=== PATIENT | female | born 1980 | race Two or more races ===

== ENCOUNTER 2020-06-20 17:49 | Emergency (ER) | payer OTHER ==
[~2020-06-20] VITALS: Ht 170.2 cm; Wt 89.4 kg
[~2020-06-20 17:49] MED LIST: DOLOGESIC CAPSU1 CAP PO; LISINOPRIL10 MG
== END 2020-06-20 22:33 | disposition home or self-care (01) ==
LOC: ER 17:49
DX: M54.16 Radiculopathy, lumbar region (principal); N39.0 Urinary tract infection, site not specified

== ENCOUNTER 2022-03-24 09:33 | Emergency (ER) | payer OTHER ==
[~2022-03-24] VITALS: Ht 170.2 cm; Wt 99.8 kg
[2022-03-24] MEDS ORDERED: PROTONIX40 M1 PO (09:52)
[2022-03-24] MEDS ORDERED: MULTI VITAMIN1 EACH PO (09:52)
== END 2022-03-24 13:10 | disposition home or self-care (01) ==
LOC: ER 09:33
DX: S09.90XA Unspecified injury of head, initial encounter (principal); X58.XXXA Exposure to other specified factors, initial encounter; Y93.9 Activity, unspecified; Y92.9 Unspecified place or not applicable; Y99.9 Unspecified external cause status; R51.9 Headache, unspecified

== ENCOUNTER 2025-03-27 07:09 | Outpatient (CLI) | payer OTHER ==
[~2025-03-27 07:09] MED LIST changes: +MULTI VITAMIN1 EACH PO; +PROTONIX40 M1 PO
== END 2025-03-27 07:11 | disposition home or self-care (01) ==
LOC: PRENATAL 07:09
PROVIDERS: ATTEND Obstetrics & Gynecology Maternal & Fetal Medicine
DX: O44.02 Complete placenta previa NOS or without hemorrhage, second trimester (principal); Z14.8 Genetic carrier of other disease; O09.522 Supervision of elderly multigravida, second trimester; O34.219 Maternal care for unspecified type scar from previous cesarean delivery; O99.212 Obesity complicating pregnancy, second trimester; Z3A.24 24 weeks gestation of pregnancy

== ENCOUNTER 2025-04-23 10:31 | Outpatient (CLI) | payer OTHER ==
[~2025-04-23 10:31] MED LIST changes: +HUMULIN N100 UNIT/2 SUBCUTANEO; +INSULIN SYRING1 EA29 SUBCUTANEO; +NIFEDIPINE ER30 M1 PO
== END 2025-04-23 10:33 | disposition home or self-care (01) ==
LOC: PRENATAL 10:31
PROVIDERS: ATTEND Obstetrics & Gynecology Maternal & Fetal Medicine
DX: O26.842 Uterine size-date discrepancy, second trimester (principal); O09.522 Supervision of elderly multigravida, second trimester; O34.219 Maternal care for unspecified type scar from previous cesarean delivery; O24.419 Gestational diabetes mellitus in pregnancy, unspecified control; O13.9 Gestational [pregnancy-induced] hypertension without significant proteinuria, unspecified trimester

== ENCOUNTER 2025-05-05 12:01 | Inpatient (IN) | payer OTHER ==
[~2025-05-05] VITALS: Ht 170.2 cm; Wt 126.1 kg
[2025-05-05] MEDS ORDERED: BETAMETHASONE ACETATE,SOD PHOS 30 MG/5 ML ML IM STA (12:03)
[2025-05-05] MEDS ORDERED: 0.9 % SODIUM CHLORIDE 1,000 ML IV SCH (12:15)
[2025-05-05 12:25] VITALS: BP 134/84
[2025-05-05] MEDS ORDERED: DIALYVITE 800-1 EACH PO (13:29)
[2025-05-05] MEDS ORDERED: LABETALOL HCL200 MG PO (13:29)
[2025-05-05] MEDS ORDERED: PRENATA CHEWAB1 EACH PO (13:29)
[2025-05-05] MEDS ORDERED: LABETALOL HCL 200 MG TABLET PO SCH (13:33)
[2025-05-05 13:41] LABS: BASO % 0.1 % (0.1-1.2); EOS # 0.07 (0.04-0.54); EOS % 0.9 % (0.7-7.0); LYMPH # 1.21 (1.18-3.74); LYMPH % 14.7 % (19.3-53.1); MEAN PLATELET VOLUME 10.90 fl (9.4-12.4); MONO # 0.44 (0.24-0.82); MONO % 5.3 % (4.7-12.5); NEUT # 6.46 (1.56-6.13); NEUT % 78.5 % (34.0-71.1); RED CELL DISTRIBUTION WIDTH 13.5 % (11.6-14.4)
[2025-05-05 13:44] LABS: URINE APPEARANCE Cloudy; URINE BILIRRUBIN Negative (NEGATIVE); URINE BLOOD Negative; URINE COLOR Dark Yellow; URINE GLUCOSE Negative (NEGATIVE); URINE LEUKOCYTE Trace; URINE NITRATE Negative; URINE PROTEIN Trace (NEGATIVE); URINE UROBILINOGEN 1.0 E.U./dl
[2025-05-05 13:45] LABS: URINE EPITHELIAL CELLS 13.6 uL (0.0-38.8); URINE RBC 42.0 uL (0.0-20.8); URINE WBC 174.3 uL (0.0-23.2)
[2025-05-05 13:47] LABS: URINE BACTERIA > 9821.5 uL (0.0-1933); URINE CAST 1.13 uL (0.0-1.40); URINE KETONE 80 (NEGATIVE)
[2025-05-05 14:07] LABS: INR 0.98
[2025-05-05 14:16] LABS: ALT/SGPT 28.0 U/L (12-78); AST/SGOT 26.0 U/L (15-37); BILIRUBIN TOTAL 0.41 mg/dL (0.3-1.2); BUN CREA RATIO 18.0 (7.0-25.0); CREATININE SERUM 0.6 mg/dL (0.55-1.02); GFR 109.11; GLOBULINA 3.1 G/DL (2.4-3.5); GLUCOSE FASTING 79.0 mg/dL (65-100); OSMOLALITY SERUM 283.0 MOSM/KG (275-295)
[2025-05-05 15:24] VITALS: BP 143/84
[2025-05-05] MEDS ORDERED: INSULIN LISPRO 1,000 UNIT/10 ML UNITS SUBCUTANEO STA (17:57)
[2025-05-05 19:28] VITALS: BP 116/73
[2025-05-05] MEDS ORDERED: INSULIN NPH HUMAN ISOPHANE 1,000 UNITS/10 ML UNITS SUBCUTANEO SCH (21:00)
[2025-05-05 23:27] VITALS: BP 124/71
[2025-05-06 04:22] VITALS: BP 135/71
[2025-05-06 07:08] VITALS: BP 134/76
[2025-05-06] MEDS ORDERED: ACETAMINOPHEN 500 MG GEL..CAP PO PRN (07:30)
[2025-05-06 11:00] VITALS: BP 147/758; BP 147/78
[2025-05-06] MEDS ORDERED: BETAMETHASONE ACETATE,SOD PHOS 30 MG/5 ML ML IM ONE (13:00)
[2025-05-06 15:22] VITALS: BP 153/86
[2025-05-06 15:55] LABS: URINE PROT QUANT 24HR 19.4 MG/DL
[2025-05-06] MEDS ORDERED: INSULIN REGULAR, HUMAN 1,000 UNIT/10 ML UNITS SUBCUTANEO SCH (16:00)
[2025-05-06 16:12] LABS: URINE PROT QUANT 24 HR 334.65 MG/24HR (42-225)
[2025-05-06 19:33] VITALS: BP 136/76
[2025-05-06] MEDS ORDERED: INSULIN NPH HUMAN ISOPHANE 1,000 UNITS/10 ML UNITS SUBCUTANEO SCH (21:00)
[2025-05-07 00:07] VITALS: BP 128/73
[2025-05-07 04:21] VITALS: BP 139/75
[2025-05-07 07:28] VITALS: BP 145/71
[2025-05-07 11:38] VITALS: BP 144/79
[2025-05-07 15:41] VITALS: BP 132/78; O2SAT 98
[2025-05-07] MEDS ORDERED: INSULIN REGULAR, HUMAN 1,000 UNIT/10 ML UNITS SUBCUTANEO SCH (16:00)
[2025-05-07] MEDS ORDERED: LABETALOL HCL 300 MG TABLET PO SCH (21:00)
== END 2025-05-07 16:21 | disposition home or self-care (01) | DRG 833 ==
LOC: LDR 12:01
PROVIDERS: ADMIT Obstetrics & Gynecology; ATTEND Obstetrics & Gynecology
PROC: BY4FZZZ Ultrasonography of Third Trimester, Single Fetus (ICD-10-PCS; principal; 2025-05-05)
PROC: 4A1HXCZ Monitoring of Products of Conception, Cardiac Rate, External Approach (ICD-10-PCS; 2025-05-05)
DX: O13.3 Gestational [pregnancy-induced] hypertension without significant proteinuria, third trimester (principal); O34.211 Maternal care for low transverse scar from previous cesarean delivery; O36.8130 Decreased fetal movements, third trimester, not applicable or unspecified; O99.213 Obesity complicating pregnancy, third trimester; O24.414 Gestational diabetes mellitus in pregnancy, insulin controlled; Z3A.30 30 weeks gestation of pregnancy; E66.9 Obesity, unspecified